=== PATIENT | female | born 1965 | race African-American/Black ===

== ENCOUNTER 2019-09-08 17:47 | Inpatient (IN) | payer MEDICARE, MEDICAID ==
[~2019-09-08] VITALS: Ht 153.4 cm; Wt 99.8 kg
[2019-09-08] MEDS ORDERED: ACETAMINOPHEN WITH CODEINE 300/30MG TABLET PO STA (18:25)
[2019-09-08 19:01] LABS: BASOPHILS % 1.1 % (0.0-2.0); EOSINOPHILS % 2.6 % (0.0-5.0); HEMATOCRIT. 37.4 % (36.0-48.0); HEMOGLOBIN. 12.5 g/dL (12.0-16.0); LYMPHOCYTES % 29.4 % (20.0-50.0); MEAN CORPUSCULAR HEMOGLOBIN 26.5 pg (28.0-32.0); MEAN CORPUSCULAR VOLUME 79.4 fL (81.0-99.0); MEAN PLATELET VOLUME 8.6 fl (7.4-10.4); MONOCYTES % 8.4 % (2.0-8.0); NEUTROPHILS % 58.5 % (40.0-76.0); PLATELET 265 x1000/uL (130-400); RED BLOOD CELL COUNT 4.71 mill/uL (4.2-5.4); RED CELL DISTRIBUTION WIDTH 13.3 % (11.6-14.6)
[2019-09-08 19:07] LABS: CHLORIDE 109 mEq/L (98-107)
[2019-09-08 19:09] LABS: PROTHROMBIN TIME 11.2 sec (9.6-11.0)
[2019-09-09] MEDS: GABAPENTIN 300MG CAPSULE PO SCH (18:02)
[2019-09-09] MEDS: ACETAMINOPHEN WITH CODEINE 300/30MG TABLET PO PRN (18:03)
[2019-09-09 22:00] VITALS: BP_SYST 122; BP_SYST 150; BP_DIAS 71; BP_DIAS 88
[2019-09-10] MEDS: GABAPENTIN 300MG CAPSULE PO SCH ×3 (01:44→18:00)
[2019-09-10 04:00] VITALS: BP 129/67
[2019-09-10 08:00] VITALS: BP 123/75
[2019-09-10] MEDS: ASPIRIN 81MG TABLET PO SCH (09:32)
[2019-09-10 12:00] VITALS: BP 134/68
[2019-09-10 16:00] VITALS: BP 120/70
[2019-09-10 19:17] LABS: CLARITY URINE CLEAR (CLEAR); COLOR URINE DARK YELLOW (YELLOW); KETONES URINE TRACE (NEGATIVE); LEUKOCYTE ESTERASE URINE NEGATIVE (NEGATIVE); NITRITE URINE NEGATIVE (NEGATIVE); OCCULT BLOOD URINE NEGATIVE (NEGATIVE); PH URINE 5.5 (4.5-8.0); PROTEIN URINE TRACE (NEGATIVE); SPECIFIC GRAVITY URINE 1.034 (1.005-1.030)
[2019-09-10 20:00] VITALS: BP 141/63
[2019-09-10] MEDS: BACLOFEN 10MG TABLET PO SCH (21:04)
[2019-09-11] VITALS: BP 121/76
[2019-09-11] MEDS: GABAPENTIN 300MG CAPSULE PO SCH (01:08)
[2019-09-11 04:00] VITALS: BP 138/72
[2019-09-11 07:11] LABS: VITAMIN B12 SERUM 252 pg/mL (211-911)
[2019-09-11 08:00] VITALS: BP 133/68
[2019-09-11] MEDS: ASPIRIN 81MG TABLET PO SCH (09:36)
[2019-09-11 12:00] VITALS: BP 144/73
[2019-09-11] MEDS ORDERED: ASPI-1160 PO (13:36)
[2019-09-11] MEDS ORDERED: BACL-141 PO (13:36)
[2019-09-11 16:00] VITALS: BP 127/88
[2019-09-11 20:00] VITALS: BP 113/67
[2019-09-11] MEDS ORDERED: ZOLPIDEM TARTRATE 5MG TABLET PO PRN (20:30)
[2019-09-11] MEDS: BACLOFEN 10MG TABLET PO SCH (21:40)
[2019-09-11] MEDS: ENOXAPARIN 40MG/0.4ML SYR SUBCUT SCH (21:59)
[2019-09-11] MEDS: ACETAMINOPHEN WITH CODEINE 300/30MG TABLET PO PRN (22:00)
[2019-09-12] VITALS: BP 134/67
[2019-09-12 04:00] VITALS: BP 143/54
[2019-09-12] MEDS: ENOXAPARIN 40MG/0.4ML SYR SUBCUT SCH (09:30)
[2019-09-12] MEDS: ASPIRIN 81MG TABLET PO SCH (09:30)
[2019-09-12] MEDS: CYANOCOBALAMIN 1000MCG TABLET PO SCH (09:30)
[2019-09-12 12:00] VITALS: BP 117/75
[2019-09-12] MEDS ORDERED: LIP40 MT (12:00)
[2019-09-12 16:00] VITALS: BP 131/66
[2019-09-12 20:00] VITALS: BP 129/69
[2019-09-12] MEDS: BACLOFEN 10MG TABLET PO SCH (21:00)
[2019-09-12] MEDS ORDERED: ATORVASTATIN CALCIUM 40MG TABLET PO SCH (21:00)
[2019-09-12] MEDS: ENOXAPARIN 30MG/0.3ML SYR SUBCUT SCH (21:02)
[2019-09-13] VITALS: BP 123/66
[2019-09-13 04:00] VITALS: BP 124/56
[2019-09-13 08:00] VITALS: BP 129/72
[2019-09-13] MEDS: ASPIRIN 81MG TABLET PO SCH (10:10)
[2019-09-13] MEDS: ENOXAPARIN 30MG/0.3ML SYR SUBCUT SCH (10:10)
[2019-09-13] MEDS: CYANOCOBALAMIN 1000MCG TABLET PO SCH (10:14)
[2019-09-13 11:16] VITALS: BP 129/72
== END 2019-09-13 11:52 | disposition home or self-care (01) | DRG 74 ==
LOC: ER 17:47 → ENRESERV 09-09 20:28 → 6EST 09-09 21:50
PROVIDERS: ADMIT Internal Medicine; ATTEND Internal Medicine
DX: G62.9 Polyneuropathy, unspecified (principal); E44.1 Mild protein-calorie malnutrition; Z68.41 Body mass index [BMI] 40.0-44.9, adult; E87.8 Other disorders of electrolyte and fluid balance, not elsewhere classified; E66.9 Obesity, unspecified; Z60.2 Problems related to living alone; M24.561 Contracture, right knee; R62.7 Adult failure to thrive; I10 Essential (primary) hypertension; Z99.3 Dependence on wheelchair; Z86.73 Personal history of transient ischemic attack (TIA), and cerebral infarction without residual deficits; Z71.3 Dietary counseling and surveillance; Z74.01 Bed confinement status
CPT/HCPCS: 36415; 71045; 73560; 80053; 80061; 81003; 82607; 84443; 84484; 85025; 92610; 93005; 93970; 97110; 97162; 97166; 97530; 99285; J1650

== ENCOUNTER 2019-09-16 13:20 | Inpatient (IN) | payer MEDICARE, MEDICAID ==
[~2019-09-16] VITALS: Ht 160 cm; Wt 84.4 kg
[~2019-09-16 13:20] MED LIST: ASPI-1160 PO; BACL-141 PO; LIP40 MT
[2019-09-16] MEDS ORDERED: TYLENOL (13:24)
[2019-09-16 15:27] LABS: BASOPHILS % 0.7 % (0.0-2.0); EOSINOPHILS % 2.6 % (0.0-5.0); HEMATOCRIT. 35.7 % (36.0-48.0); HEMOGLOBIN. 11.9 g/dL (12.0-16.0); LYMPHOCYTES % 30.8 % (20.0-50.0); MEAN CORPUSCULAR HEMOGLOBIN 26.8 pg (28.0-32.0); MEAN CORPUSCULAR VOLUME 80.2 fL (81.0-99.0); MEAN PLATELET VOLUME 8.4 fl (7.4-10.4); MONOCYTES % 7.9 % (2.0-8.0); PLATELET 243 x1000/uL (130-400); RED BLOOD CELL COUNT 4.45 mill/uL (4.2-5.4); RED CELL DISTRIBUTION WIDTH 13.3 % (11.6-14.6)
[2019-09-16 15:28] LABS: CLARITY URINE TURBID (CLEAR); COLOR URINE YELLOW (YELLOW); KETONES URINE NEGATIVE (NEGATIVE); LEUKOCYTE ESTERASE URINE 3+ (NEGATIVE); NITRITE URINE NEGATIVE (NEGATIVE); OCCULT BLOOD URINE 2+ (NEGATIVE); PH URINE >=9.0 (4.5-8.0); PROTEIN URINE 2+ (NEGATIVE); SPECIFIC GRAVITY URINE 1.019 (1.005-1.030)
[2019-09-16] MEDS ORDERED: DOCUSATE SODIUM 100MG CAPSULE PO PRN (15:30)
[2019-09-16] MEDS ORDERED: ACETAMINOPHEN 325MG TABLET PO PRN (15:30)
[2019-09-16] MEDS ORDERED: NA PHOS,M-B/NA PHOS,DI-BA ENEMA 118ML PR PRN (15:30)
[2019-09-16] MEDS ORDERED: MAGNESIUM/ALUMINUM HYDROXIDE/SIMETHICONE 30ML UDC PO PRN (15:30)
[2019-09-16] MEDS ORDERED: ZOLPIDEM TARTRATE 5MG TABLET PO PRN (15:30)
[2019-09-16] MEDS ORDERED: CLONIDINE 0.1MG TABLET PO PRN (15:30)
[2019-09-16] MEDS ORDERED: ONDANSETRON HCL 4MG/2ML INJ IV PRN (15:30)
[2019-09-16] MEDS ORDERED: HYDROMORPHONE HCL/PF 2MG/ML CPJ IV PRN (15:30)
[2019-09-16] MEDS ORDERED: GUAIFENESIN 200MG/10ML SUGAR FREE UDC PO PRN (15:30)
[2019-09-16] MEDS ORDERED: HYDROCODONE/ACETAMINOPHEN 5/325MG TABLET PO PRN (15:30)
[2019-09-16 15:31] LABS: CHLORIDE 110 mEq/L (98-107)
[2019-09-16 15:33] LABS: PROTHROMBIN TIME 11.1 sec (9.6-11.0)
[2019-09-16] MEDS ORDERED: CEFTRIAXONE 1 G PREMIX 50 ML IV ONE (16:15)
[2019-09-16] MEDS ORDERED: ENOXAPARIN 40MG/0.4ML SYR SUBCUT NR (16:30)
[2019-09-17] MEDS: LEVOFLOXACIN 500MG PREMIX 100 ML IV SCH ×2 (12:39→13:26)
[2019-09-17 16:00] VITALS: BP 125/87
[2019-09-17] MEDS ORDERED: ENOXAPARIN 40MG/0.4ML SYR SUBCUT SCH (16:00)
[2019-09-17 16:16] VITALS: BP 121/70
[2019-09-17 20:36] VITALS: BP 121/59
[2019-09-17] MEDS: ENOXAPARIN 30MG/0.3ML SYR SUBCUT SCH (21:24)
[2019-09-17] MEDS: ATORVASTATIN CALCIUM 40MG TABLET PO SCH (21:25)
[2019-09-18 00:14] VITALS: BP 128/66
[2019-09-18 04:29] VITALS: BP 132/68
[2019-09-18 08:00] VITALS: BP 136/74
[2019-09-18] MEDS: ENOXAPARIN 30MG/0.3ML SYR SUBCUT SCH ×2 (08:29→21:16)
[2019-09-18] MEDS: LEVOFLOXACIN 500MG TABLET PO SCH (11:59)
[2019-09-18 12:00] VITALS: BP 120/79
[2019-09-18 16:00] VITALS: BP 124/68
[2019-09-18 20:00] VITALS: BP 116/68
[2019-09-18] MEDS: ATORVASTATIN CALCIUM 40MG TABLET PO SCH (21:16)
[2019-09-19] VITALS: BP 119/69
[2019-09-19 04:00] VITALS: BP 108/62
[2019-09-19 08:00] VITALS: BP 127/60
[2019-09-19] MEDS: ENOXAPARIN 30MG/0.3ML SYR SUBCUT SCH ×2 (08:51→21:29)
[2019-09-19] MEDS: LEVOFLOXACIN 500MG TABLET PO SCH (11:45)
[2019-09-19 12:00] VITALS: BP 125/68
[2019-09-19] MEDS: BACLOFEN 10MG TABLET PO SCH ×2 (15:17→21:28)
[2019-09-19 16:00] VITALS: BP 106/71
[2019-09-19 20:00] VITALS: BP 108/67
[2019-09-19] MEDS: ATORVASTATIN CALCIUM 40MG TABLET PO SCH (21:28)
[2019-09-20] VITALS: BP 117/53
[2019-09-20 04:00] VITALS: BP 113/62
[2019-09-20] MEDS: BACLOFEN 10MG TABLET PO SCH (05:03)
[2019-09-20 08:00] VITALS: BP_SYST 103; BP_SYST 125; BP_SYST 128; BP_DIAS 65; BP_DIAS 66
[2019-09-20] MEDS: ENOXAPARIN 30MG/0.3ML SYR SUBCUT SCH (09:25)
[2019-09-20] MEDS: LEVOFLOXACIN 500MG TABLET PO SCH (11:10)
[2019-09-20 12:00] VITALS: BP 116/68
[2019-09-20 12:05] VITALS: BP 125/65
[2019-09-21] MEDS ORDERED: ENOXAPARIN 40MG/0.4ML SYR SUBCUT SCH (09:00)
== END 2019-09-20 14:10 | disposition home or self-care (01) | DRG 690 ==
LOC: ER 13:34 → 6EST 14:54 → ENRESERV 09-17 14:12
PROVIDERS: ADMIT Hospitalist; ATTEND Hospitalist
DX: N39.0 Urinary tract infection, site not specified (principal); I69.354 Hemiplegia and hemiparesis following cerebral infarction affecting left non-dominant side; R62.7 Adult failure to thrive; E78.5 Hyperlipidemia, unspecified; I10 Essential (primary) hypertension; G62.9 Polyneuropathy, unspecified; Z74.01 Bed confinement status; Z68.32 Body mass index [BMI] 32.0-32.9, adult; Z03.818 Encounter for observation for suspected exposure to other biological agents ruled out; M79.604 Pain in right leg; M79.605 Pain in left leg
CPT/HCPCS: 36415; 80053; 81003; 84484; 85025; 93005; 97112; 97140; 97163; 97167; 97530; 97535; 99285; J0696; J1650; J1956; U0003-CS

== ENCOUNTER 2021-10-21 21:19 | Inpatient (IN) | payer MEDICARE, MEDICAID ==
[~2021-10-21] VITALS: Ht 162.6 cm; Wt 121.7 kg
[~2021-10-21 21:19] MED LIST changes: +TYLENOL
[2021-10-21] MEDS ORDERED: SODIUM CHLORIDE 0.9% 1,000 ML IV ONE (21:30)
[2021-10-21 21:47] LABS: BASOPHILS % 0.8 % (0.0-2.0); HEMATOCRIT. 42.5 % (36.0-48.0); HEMOGLOBIN. 13.7 g/dL (12.0-16.0); LYMPHOCYTES % 33.3 % (20.0-50.0); MEAN CORPUSCULAR HEMOGLOBIN 25.2 pg (28.0-32.0); MEAN CORPUSCULAR VOLUME 78.4 fL (81.0-99.0); MEAN PLATELET VOLUME 8.1 fl (7.4-10.4); MONOCYTES % 6.8 % (2.0-8.0); NEUTROPHILS % 56.1 % (40.0-76.0); PLATELET 233 x1000/uL (130-400); RED BLOOD CELL COUNT 5.42 mill/uL (4.2-5.4); RED CELL DISTRIBUTION WIDTH 14.2 % (11.6-14.6)
[2021-10-21 21:55] LABS: CHLORIDE 105 mEq/L (98-107)
[2021-10-22] MEDS ORDERED: ENOXAPARIN 100MG/ML SYR SUBCUT ONE (00:45)
[2021-10-22 04:00] VITALS: BP 130/79
[2021-10-22 05:41] VITALS: BP 130/79
[2021-10-22 08:00] VITALS: BP 168/91
[2021-10-22] MEDS ORDERED: ONDANSETRON HCL 4MG/2ML INJ IV PRN (08:15)
[2021-10-22] MEDS ORDERED: CLONIDINE 0.1MG TABLET PO PRN (08:15)
[2021-10-22] MEDS ORDERED: NALOXONE HCL 0.4MG/ML VIAL IV PRN (08:15)
[2021-10-22] MEDS ORDERED: DIPHENHYDRAMINE 50MG/ML VIAL IV PRN (08:15)
[2021-10-22] MEDS ORDERED: ACETAMINOPHEN 325MG TABLET PO PRN (08:15)
[2021-10-22] MEDS ORDERED: IPRATROPIUM/ALBUTEROL 0.5-3(2.5)MG/3ML NEB HHN PRN (08:15)
[2021-10-22 12:00] VITALS: BP 137/69
[2021-10-22] MEDS ORDERED: ENOXAPARIN 40MG/0.4ML SYR SUBCUT SCH (13:00)
[2021-10-22] MEDS ORDERED: VALS1TAB75 MT (13:36)
[2021-10-22] MEDS ORDERED: AMLO5TAB88 MT (13:36)
[2021-10-22] MEDS ORDERED: ATOR40TA70 MT (13:36)
[2021-10-22] MEDS ORDERED: BACL-141 PO (13:36)
[2021-10-22] MEDS ORDERED: HYDR-4133 PO (13:36)
[2021-10-22] MEDS ORDERED: DEXTROSE 50% WATER 50ML SYRINGE IV PRN (14:30)
[2021-10-22] MEDS: AMLODIPINE 5MG TABLET PO SCH (14:41)
[2021-10-22 16:00] VITALS: BP 141/78
[2021-10-22] MEDS: BLOOD SUGAR DIAGNOSTIC STRIP TEST SCH ×2 (17:26→21:35)
[2021-10-22] MEDS: INSULIN LISPRO 100 UNITS/ML SUBCUT SCH ×2 (17:54→21:43)
[2021-10-22 20:00] VITALS: BP 130/68
[2021-10-22] MEDS: ATORVASTATIN CALCIUM 40MG TABLET PO SCH (21:35)
[2021-10-22] MEDS: ENOXAPARIN 30MG/0.3ML SYR SUBCUT SCH (21:46)
[2021-10-23] VITALS: BP 151/76
[2021-10-23 04:00] VITALS: BP 142/79
[2021-10-23] MEDS: INSULIN LISPRO 100 UNITS/ML SUBCUT SCH ×4 (06:19→21:09)
[2021-10-23] MEDS: BLOOD SUGAR DIAGNOSTIC STRIP TEST SCH ×4 (06:19→21:07)
[2021-10-23 08:00] VITALS: BP 147/67
[2021-10-23] MEDS: CLOPIDOGREL 75MG TABLET PO SCH (08:40)
[2021-10-23] MEDS: ASPIRIN 81MG TABLET PO SCH (08:40)
[2021-10-23] MEDS: AMLODIPINE 5MG TABLET PO SCH (08:40)
[2021-10-23] MEDS: HYDRALAZINE HCL 10MG TABLET PO SCH (08:40)
[2021-10-23] MEDS: ENOXAPARIN 30MG/0.3ML SYR SUBCUT SCH ×2 (08:41→21:10)
[2021-10-23 09:34] LABS: EOSINOPHILS % 4.4 % (0.0-5.0); HEMATOCRIT. 38.8 % (36.0-48.0); HEMOGLOBIN. 12.7 g/dL (12.0-16.0); LYMPHOCYTES % 33.4 % (20.0-50.0); MEAN CORPUSCULAR HEMOGLOBIN 25.7 pg (28.0-32.0); MEAN CORPUSCULAR VOLUME 78.6 fL (81.0-99.0); MEAN PLATELET VOLUME 8.4 fl (7.4-10.4); MONOCYTES % 7.8 % (2.0-8.0); NEUTROPHILS % 53.4 % (40.0-76.0); PLATELET 219 x1000/uL (130-400); RED BLOOD CELL COUNT 4.94 mill/uL (4.2-5.4); RED CELL DISTRIBUTION WIDTH 14.2 % (11.6-14.6)
[2021-10-23 09:57] LABS: CHLORIDE 109 mEq/L (98-107)
[2021-10-23 12:00] VITALS: BP 138/63
[2021-10-23 16:00] VITALS: BP 143/86
[2021-10-23 20:00] VITALS: BP 135/60
[2021-10-23] MEDS: ATORVASTATIN CALCIUM 40MG TABLET PO SCH (21:08)
[2021-10-24] VITALS (7 sets, daily range): BP systolic 125–146; BP diastolic 58–89
[2021-10-24 06:16] LABS: BASOPHILS % 1.1 % (0.0-2.0); EOSINOPHILS % 4.7 % (0.0-5.0); HEMATOCRIT. 40.1 % (36.0-48.0); HEMOGLOBIN. 12.9 g/dL (12.0-16.0); MEAN CORPUSCULAR HEMOGLOBIN 25.2 pg (28.0-32.0); MEAN CORPUSCULAR VOLUME 78.1 fL (81.0-99.0); MEAN PLATELET VOLUME 8.9 fl (7.4-10.4); MONOCYTES % 8.1 % (2.0-8.0); NEUTROPHILS % 51.1 % (40.0-76.0); PLATELET 238 x1000/uL (130-400); RED BLOOD CELL COUNT 5.14 mill/uL (4.2-5.4); RED CELL DISTRIBUTION WIDTH 14.1 % (11.6-14.6)
[2021-10-24] MEDS: BLOOD SUGAR DIAGNOSTIC STRIP TEST SCH ×4 (06:21→21:55)
[2021-10-24] MEDS: INSULIN LISPRO 100 UNITS/ML SUBCUT SCH ×4 (06:22→21:54)
[2021-10-24 08:14] LABS: CHLORIDE 106 mEq/L (98-107)
[2021-10-24] MEDS: ENOXAPARIN 30MG/0.3ML SYR SUBCUT SCH ×2 (09:02→21:53)
[2021-10-24] MEDS: ASPIRIN 81MG TABLET PO SCH (09:02)
[2021-10-24] MEDS: AMLODIPINE 5MG TABLET PO SCH (09:03)
[2021-10-24] MEDS: HYDRALAZINE HCL 10MG TABLET PO SCH (09:03)
[2021-10-24] MEDS: CLOPIDOGREL 75MG TABLET PO SCH (09:03)
[2021-10-24] MEDS ORDERED: ATORVASTATIN CALCIUM 40MG TABLET PO SCH (21:00)
[2021-10-24] MEDS: ATORVASTATIN CALCIUM 40MG TABLET PO SCH (21:55)
[2021-10-24] MEDS: MORPHINE SULFATE 2 MG/ML CPJ (NOT FOR IM USE) IV PRN (22:52)
[2021-10-25 04:00] VITALS: BP 123/60
[2021-10-25] MEDS: BLOOD SUGAR DIAGNOSTIC STRIP TEST SCH ×4 (06:41→21:32)
[2021-10-25] MEDS: INSULIN LISPRO 100 UNITS/ML SUBCUT SCH ×4 (06:51→20:43)
[2021-10-25 08:00] VITALS: BP 116/67
[2021-10-25] MEDS: ZINC OXIDE 20% OINT 30GM TOP SCH (10:31)
[2021-10-25] MEDS: ASPIRIN 81MG TABLET PO SCH (10:31)
[2021-10-25] MEDS: ENOXAPARIN 30MG/0.3ML SYR SUBCUT SCH (10:31)
[2021-10-25] MEDS: HYDRALAZINE HCL 10MG TABLET PO SCH (10:32)
[2021-10-25] MEDS: CLOPIDOGREL 75MG TABLET PO SCH (10:32)
[2021-10-25] MEDS: AMLODIPINE 5MG TABLET PO SCH (10:32)
[2021-10-25 12:00] VITALS: BP 116/67
[2021-10-25 16:00] VITALS: BP 149/79
[2021-10-25] MEDS ORDERED: POLYETHYLENE GLYCOL 3350 (17GM) 1 DOSE PACK PO PRN (17:00)
[2021-10-25 20:00] VITALS: BP 140/89
[2021-10-25] MEDS: ENOXAPARIN 40MG/0.4ML SYR SUBCUT SCH (20:44)
[2021-10-25] MEDS: ATORVASTATIN CALCIUM 40MG TABLET PO SCH (20:44)
[2021-10-26] VITALS: BP 145/66
[2021-10-26] MEDS: MORPHINE SULFATE 2 MG/ML CPJ (NOT FOR IM USE) IV PRN ×2 (03:03→13:43)
[2021-10-26 04:00] VITALS: BP 141/80
[2021-10-26] MEDS: INSULIN LISPRO 100 UNITS/ML SUBCUT SCH ×4 (06:19→21:13)
[2021-10-26] MEDS: BLOOD SUGAR DIAGNOSTIC STRIP TEST SCH ×4 (06:19→21:13)
[2021-10-26 08:00] VITALS: BP 164/79
[2021-10-26] MEDS: ASPIRIN 81MG TABLET PO SCH ×2 (08:40→10:52)
[2021-10-26] MEDS: AMLODIPINE 5MG TABLET PO SCH ×2 (08:40→10:53)
[2021-10-26] MEDS: CLOPIDOGREL 75MG TABLET PO SCH (08:40)
[2021-10-26] MEDS: HYDRALAZINE HCL 10MG TABLET PO SCH ×2 (08:40→10:52)
[2021-10-26] MEDS: ZINC OXIDE 20% OINT 30GM TOP SCH ×2 (08:41→10:53)
[2021-10-26] MEDS: ENOXAPARIN 40MG/0.4ML SYR SUBCUT SCH (08:41)
[2021-10-26] MEDS ORDERED: FENTANYL CITRATE/PF 50MCG/ML 2ML VIAL ONE (08:51)
[2021-10-26] MEDS ORDERED: MIDAZOLAM HCL 2 MG/2 ML VIAL ONE (08:51)
[2021-10-26] MEDS ORDERED: LIDOCAINE HCL 2% JELLY 5ML ONE (09:07)
[2021-10-26] MEDS ORDERED: TETRACAINE/BENZOCAINE/BUTAMBEN 20 GM SPRAY MM ONE (09:07)
[2021-10-26 12:00] VITALS: BP 155/80
[2021-10-26 16:00] VITALS: BP 157/71
[2021-10-26] MEDS: APIXABAN 2.5 MG TABLET PO SCH (17:28)
[2021-10-26] MEDS: MORPHINE SULFATE 4 MG/ML CPJ (NOT FOR IM USE) IV PRN (19:42)
[2021-10-26 20:00] VITALS: BP 141/80
[2021-10-26] MEDS: ATORVASTATIN CALCIUM 40MG TABLET PO SCH (21:13)
[2021-10-27] VITALS: BP 149/76
[2021-10-27 04:00] VITALS: BP 155/77
[2021-10-27] MEDS: BLOOD SUGAR DIAGNOSTIC STRIP TEST SCH ×4 (05:24→19:58)
[2021-10-27] MEDS: INSULIN LISPRO 100 UNITS/ML SUBCUT SCH ×4 (05:24→21:50)
[2021-10-27 08:00] VITALS: BP 166/70
[2021-10-27] MEDS: APIXABAN 2.5 MG TABLET PO SCH ×2 (09:31→17:41)
[2021-10-27] MEDS: HYDRALAZINE HCL 10MG TABLET PO SCH (09:31)
[2021-10-27] MEDS: ASPIRIN 81MG TABLET PO SCH (09:31)
[2021-10-27] MEDS: AMLODIPINE 5MG TABLET PO SCH (09:31)
[2021-10-27] MEDS: ZINC OXIDE 20% OINT 30GM TOP SCH (09:31)
[2021-10-27] MEDS: MORPHINE SULFATE 4 MG/ML CPJ (NOT FOR IM USE) IV PRN ×2 (09:36→15:55)
[2021-10-27 12:00] VITALS: BP 147/77
[2021-10-27 16:00] VITALS: BP 155/72
[2021-10-27 19:57] VITALS: BP 149/89
[2021-10-27] MEDS: ATORVASTATIN CALCIUM 40MG TABLET PO SCH (21:50)
[2021-10-27] MEDS ORDERED: NALOXONE HCL 0.4MG/ML VIAL IV PRN (22:30)
[2021-10-28] VITALS (7 sets, daily range): BP systolic 126–155; BP diastolic 69–89
[2021-10-28] MEDS: MORPHINE SULFATE 4 MG/ML CPJ (NOT FOR IM USE) IV PRN ×2 (00:05→23:10)
[2021-10-28] MEDS: BLOOD SUGAR DIAGNOSTIC STRIP TEST SCH ×4 (05:13→20:59)
[2021-10-28] MEDS: INSULIN LISPRO 100 UNITS/ML SUBCUT SCH ×4 (05:54→21:24)
[2021-10-28 06:54] LABS: BASOPHILS % 0.8 % (0.0-2.0); HEMATOCRIT. 39.4 % (36.0-48.0); HEMOGLOBIN. 12.6 g/dL (12.0-16.0); LYMPHOCYTES % 17.4 % (20.0-50.0); MEAN CORPUSCULAR HEMOGLOBIN 25.2 pg (28.0-32.0); MEAN CORPUSCULAR VOLUME 78.9 fL (81.0-99.0); MEAN PLATELET VOLUME 8.5 fl (7.4-10.4); MONOCYTES % 8.4 % (2.0-8.0); NEUTROPHILS % 71.4 % (40.0-76.0); PLATELET 243 x1000/uL (130-400)
[2021-10-28] MEDS: ASPIRIN 81MG TABLET PO SCH (09:18)
[2021-10-28] MEDS: APIXABAN 2.5 MG TABLET PO SCH ×2 (09:19→17:45)
[2021-10-28] MEDS: AMLODIPINE 5MG TABLET PO SCH (09:19)
[2021-10-28] MEDS: HYDRALAZINE HCL 10MG TABLET PO SCH (09:19)
[2021-10-28 09:21] LABS: CHLORIDE 104 mEq/L (98-107)
[2021-10-28] MEDS: ZINC OXIDE 20% OINT 30GM TOP SCH (09:21)
[2021-10-28] MEDS ORDERED: APIX2.5T PO (14:10)
[2021-10-28] MEDS: ATORVASTATIN CALCIUM 40MG TABLET PO SCH (21:24)
[2021-10-29 02:49] VITALS: BP 145/85
[2021-10-29 04:10] VITALS: BP 145/85
[2021-10-29] MEDS: BLOOD SUGAR DIAGNOSTIC STRIP TEST SCH (05:57)
[2021-10-29] MEDS: INSULIN LISPRO 100 UNITS/ML SUBCUT SCH (06:12)
[2021-10-29 08:00] VITALS: BP 144/71
[2021-10-29] MEDS: ASPIRIN 81MG TABLET PO SCH (08:56)
[2021-10-29] MEDS: APIXABAN 2.5 MG TABLET PO SCH (08:56)
[2021-10-29] MEDS: HYDRALAZINE HCL 10MG TABLET PO SCH (08:57)
[2021-10-29] MEDS: AMLODIPINE 5MG TABLET PO SCH (08:57)
[2021-10-29] MEDS: ZINC OXIDE 20% OINT 30GM TOP SCH (08:58)
[2021-10-29] MEDS ORDERED: DULOXETINE HCL 20MG DR CAPSULE PO SCH (09:00)
[2021-10-29] MEDS ORDERED: BACLOFEN 10MG TABLET PO SCH (09:00)
== END 2021-10-29 10:35 | disposition home or self-care (01) | DRG 65 ==
LOC: ER 21:19 → 8WST 10-22 00:44 → ENRESERV 10-22 02:42
PROVIDERS: ADMIT Internal Medicine; ATTEND Internal Medicine
PROC: B246ZZ4 Ultrasonography of Right and Left Heart, Transesophageal (ICD-10-PCS; principal; 2021-10-26)
DX: I63.9 Cerebral infarction, unspecified (principal); I69.354 Hemiplegia and hemiparesis following cerebral infarction affecting left non-dominant side; Z68.42 Body mass index [BMI] 45.0-49.9, adult; Z20.822 Contact with and (suspected) exposure to COVID-19; E11.9 Type 2 diabetes mellitus without complications; E66.01 Morbid (severe) obesity due to excess calories; I10 Essential (primary) hypertension; I51.3 Intracardiac thrombosis, not elsewhere classified; R13.10 Dysphagia, unspecified; R29.715 NIHSS score 15; E78.5 Hyperlipidemia, unspecified; Z74.01 Bed confinement status; Z79.4 Long term (current) use of insulin; R47.1 Dysarthria and anarthria
CPT/HCPCS: 36415; 70544; 70551; 71045; 72131; 73523; 80048; 80053; 80061; 82962; 83036; 83721; 83880; 84484; 85025; 85379; 87426; 92523; 93005; 93306; 93312; 93880; 93970; 97162; 97165; 99291; J1650; J1815; J2250; J2270; J3010; J7030